=== PATIENT | female | born 2000 | race Two or more races ===

== ENCOUNTER 2021-03-20 21:56 | Observation (INO) | payer SELFPAY ==
[2021-03-20] MEDS ORDERED: IV RINGERS,LACTATED 1000ML 1,000 ML IV SCH (22:00)
[2021-03-20 22:59] LABS: BILIRUBIN,URINE NEGATIVE (NEG); CLARITY,URINE CLEAR; COLOR,URINE YELLOW; NITRITE,URINE NEGATIVE (NEG); PROTEIN,URINE NEGATIVE (NEG-TRACE); UROBILINOGEN,URINE 0.2 mg/dL (0.2 mg/dL)
[2021-03-20 23:06] LABS: BACTERIA,URINE FEW /HPF (0-FEW); RBC,URINE 0 /HPF (0-2)
== END 2021-03-20 23:05 | disposition home or self-care (01) ==
LOC: 3 SO LND 21:56
PROVIDERS: ADMIT Obstetrics & Gynecology; ATTEND Obstetrics & Gynecology
DX: O36.8130 Decreased fetal movements, third trimester, not applicable or unspecified (principal); Z3A.29 29 weeks gestation of pregnancy
CPT/HCPCS: 81001; G0378; G0379

== ENCOUNTER 2021-05-13 19:31 | Observation (INO) | payer SELFPAY ==
[~2021-05-13] VITALS: Ht 161.8 cm; Wt 98.7 kg
[2021-05-13] MEDS ORDERED: IV RINGERS,LACTATED 1000ML 1,000 ML IV PRN (19:45)
[2021-05-13 19:56] LABS: BILIRUBIN,URINE NEGATIVE (NEG); CLARITY,URINE CLEAR; COLOR,URINE YELLOW; NITRITE,URINE NEGATIVE (NEG); PROTEIN,URINE NEGATIVE (NEG-TRACE); UROBILINOGEN,URINE 0.2 mg/dL (0.2 mg/dL)
[2021-05-13 20:05] LABS: BACTERIA,URINE MANY /HPF (0-FEW)
[2021-05-13 20:07] LABS: RBC,URINE 0 /HPF (0-2)
[2021-05-13 20:17] LABS: AMNIO PT NEGATIVE
== END 2021-05-13 22:58 | disposition home or self-care (01) ==
LOC: 3 SO LND 19:31
PROVIDERS: ADMIT Obstetrics & Gynecology; ATTEND Obstetrics & Gynecology
DX: O42.92 Full-term premature rupture of membranes, unspecified as to length of time between rupture and onset of labor (principal); Z3A.37 37 weeks gestation of pregnancy
CPT/HCPCS: 36415; 59025; 81001; 84112; 87086; G0378; G0379